=== PATIENT | male | born 1975 | race Caucasian/White ===

== ENCOUNTER 2025-10-18 17:33 | Emergency (ER) | payer OTHER | END 2025-10-18 18:01 | LOC: ERS 17:33 | DX: F10.129 Alcohol abuse with intoxication, unspecified (principal); S00.81XA Abrasion of other part of head, initial encounter; I10 Essential (primary) hypertension; Z55.6 Problems related to health literacy; W18.30XA Fall on same level, unspecified, initial encounter | CPT/HCPCS: 99284 ==

== ENCOUNTER 2025-11-23 22:10 | Emergency (ER) | payer OTHER ==
[2025-11-23] MEDS ORDERED: Ondansetron PF 4 MG/2 ML Vial ONE (22:18)
[2025-11-23] MEDS ORDERED: Ketamine In 0.9 % NaCl 50 MG/5 ML SYRINGE ONE (22:52)
== END 2025-11-24 00:19 | disposition home or self-care (01) ==
LOC: ERS 22:10
DX: S53.104A Unspecified dislocation of right ulnohumeral joint, initial encounter (principal); I10 Essential (primary) hypertension; V00.141A Fall from scooter (nonmotorized), initial encounter
CPT/HCPCS: 24600; 96374; 96375; 99152; J2405; J3010; J3490

== ENCOUNTER 2025-11-26 17:41 | Emergency (ER) | payer OTHER ==
[2025-11-26] MEDS ORDERED: HYDROcodone/Acetaminophen 7.5/325 mg Tablet ONE (20:38)
== END 2025-11-26 21:01 | disposition home or self-care (01) ==
LOC: ERS 17:41
DX: S42.401A Unspecified fracture of lower end of right humerus, initial encounter for closed fracture (principal); I10 Essential (primary) hypertension; X58.XXXA Exposure to other specified factors, initial encounter
CPT/HCPCS: 29105